=== PATIENT | female | born 1970 | race Caucasian/White ===

== ENCOUNTER 2018-04-20 13:31 | Inpatient (IN) | payer BC, OTHER ==
[~2018-04-20] VITALS: Ht 165.1 cm; Wt 61.2 kg
[2018-04-20] MEDS ORDERED: CLONIDINE HCL 0.1 MG TABLET PO PRN (15:00)
[2018-04-20] MEDS ORDERED: ONDANSETRON ODT 4 MG TAB.RAPDIS SL PRN (15:00)
[2018-04-20] MEDS ORDERED: LORAZEPAM 1 MG TABLET PO PRN (15:00)
[2018-04-20] MEDS ORDERED: ONDANSETRON 4 MG/2 ML VIAL IM PRN (15:00)
[2018-04-20] MEDS ORDERED: MAGNESIUM HYDROXIDE 30 ML LIQUID UDC PO PRN (15:00)
[2018-04-20] MEDS ORDERED: ACETAMINOPHEN 325 MG TABLET PO PRN (15:00)
[2018-04-20] MEDS ORDERED: diphenhydrAMINE 50 MG CAPSULE PO PRN (15:00)
[2018-04-20] MEDS ORDERED: LOPERAMIDE HCL 2 MG CAPSULE PO PRN ×2 (15:00)
[2018-04-20] MEDS ORDERED: THIAMINE HCL 200 MG/2 ML VIAL IM ONE (15:00)
[2018-04-20] MEDS ORDERED: LORAZEPAM 2 MG/1 ML VIAL IM PRN (15:00)
[2018-04-20] MEDS ORDERED: MIRALAX 17 GM POWD.PACK PO PRN (15:00)
[2018-04-20] MEDS ORDERED: MAG HYDROX/AL HYDROX/SIMETH 30 ML LIQUID UDC PO PRN (15:00)
[2018-04-20] MEDS ORDERED: TRAZ-214 PO ×2 (15:15→16:09)
[2018-04-20] MEDS ORDERED: KETO15CR2 TP (15:15)
[2018-04-20] MEDS ORDERED: [UNRECOGNIZED DRUG - CODE] PO ×2 (15:15→16:27)
[2018-04-20] MEDS ORDERED: LEVE750T54 PO (15:15)
[2018-04-20 15:30] LABS: *URINE HCG, QUAL NEGATIVE (NEGATIVE)
[2018-04-20 15:41] LABS: *AMPHETAMINE, URINE NEGATIVE (NEGATIVE); *BARBITURATE, URINE NEGATIVE (NEGATIVE); *CANNABINOID, URINE NEGATIVE (NEGATIVE); *COCCAINE, URINE NEGATIVE (NEGATIVE); *OPIATE, URINE NEGATIVE (NEGATIVE); *PHENCYCLIDINE SCREEN,URINE NEGATIVE (NEGATIVE)
[2018-04-20] MEDS ORDERED: LORAZEPAM 1 MG TABLET PO ONE (16:00)
[2018-04-20] MEDS ORDERED: KETOCONAZOLE 2% CREAM 30 GM TUBE TP PRN (16:00)
[2018-04-20 16:11] LABS: BASOPHILS # (AUTO) 0.1 K/uL (0.0-8.0); BASOPHILS % (AUTO) 1.3 % (0.0-2.0); EOSINOPHILS # (AUTO) 0.1 K/uL (0.0-0.7); EOSINOPHILS % (AUTO) 0.8 % (0.0-7.0); HEMATOCRIT 38.4 % (31.2-41.9); HEMOGLOBIN 13.3 g/dL (10.9-14.3); LYMPHOCYTES # (AUTO) 2.5 K/uL (20.0-40.0); LYMPHOCYTES % (AUTO) 38.8 % (20.5-51.5); MEAN CORPUSCULAR HEMOGLOBIN 31.9 uug (24.7-32.8); MEAN CORPUSCULAR HGB CONC 35 g/dL (32.3-35.6); MEAN CORPUSCULAR VOLUME 91.8 fL (75.5-95.3); MONOCYTES # (AUTO) 0.5 K/uL (2.0-10.0); MONOCYTES % (AUTO) 8.3 % (0.0-11.0); NEUTROPHILS # (AUTO) 3.3 K/uL (1.8-8.9); NEUTROPHILS % (AUTO) 50.8 % (38.5-71.5); PLATELET COUNT (AUTO) 285 K/uL (179-408); RED BLOOD CELL COUNT(AUTO) 4.18 MIL/uL (3.63-4.92); WHITE BLOOD COUNT (AUTO) 6.4 K/uL (3.8-11.8)
[2018-04-20] MEDS ORDERED: LEVE750T10 PO (16:11)
[2018-04-20] MEDS: FOLIC ACID 1 MG TABLET PO SCH (16:20)
[2018-04-20] MEDS: THIAMINE HCL 100 MG TABLET PO SCH (16:20)
[2018-04-20] MEDS: MULTIVITAMINS,THERAPEUTIC TABLET PO SCH (16:20)
[2018-04-20 16:23] LABS: ALANINE AMINOTRANSFERASE 43 U/L (14-59); ALKALINE PHOSPHATASE 52 U/L (50-136); AMYLASE 117 U/L (25-115); ASPARTATE AMINOTRANSFERASE 27 U/L (15-37); BILIRUBIN,TOTAL 0.4 mg/dL (0.2-1.0); CARBON DIOXIDE 25 mmol/L (21-32); CHLORIDE 102 mmol/L (98-107); GLUCOSE 192 mg/dL (74-106); LIPASE 251 U/L (73-393); MAGNESIUM 1.8 mg/dL (1.8-2.4); POTASSIUM 4.2 mmol/L (3.5-5.1); TOTAL PROTEIN, SERUM 7.3 g/dL (6.4-8.2); UREA NITROGEN, BLOOD 17 mg/dL (7-18)
[2018-04-20 16:30] VITALS: BP 142/59
[2018-04-20 16:34] LABS: ETHANOL < 3 MG/DL (0-0)
[2018-04-20 16:53] LABS: THYROID STIMULATING HORMONE 0.977 mIU/mL (0.358-3.740)
[2018-04-20 20:11] VITALS: BP 100/53
[2018-04-20] MEDS: LEVETIRACETAM 250 MG TABLET PO SCH (20:21)
[2018-04-20] MEDS: LORAZEPAM 1 MG TABLET PO PRN (20:51)
[2018-04-20] MEDS ORDERED: TRAZODONE 100 MG TABLET PO SCH (21:00)
[2018-04-20] MEDS: TRAZODONE 100 MG TABLET PO SCH (21:58)
[2018-04-21 08:00] VITALS: BP 118/74
[2018-04-21 08:06] LABS: HEPATITIS B SURFACE AG Negative (Negative)
[2018-04-21] MEDS: LORAZEPAM 1 MG TABLET PO SCH ×3 (08:16→22:14)
[2018-04-21] MEDS: FOLIC ACID 1 MG TABLET PO SCH (08:16)
[2018-04-21] MEDS: THIAMINE HCL 100 MG TABLET PO SCH (08:16)
[2018-04-21] MEDS: LEVETIRACETAM 250 MG TABLET PO SCH ×2 (08:16→22:14)
[2018-04-21] MEDS: MULTIVITAMINS,THERAPEUTIC TABLET PO SCH (08:16)
[2018-04-21] MEDS ORDERED: 3 DAY TAPER OF LORAZEPAM -SERENITY PROTOCOL PO PRN (09:00)
[2018-04-21] MEDS ORDERED: TUBERCULIN,PURIF.PROT.DERIV. 5 TU/0.1 ML TEST ID ONE (09:00)
[2018-04-21] MEDS ORDERED: PATIENT MAY USE OWN MED- MD OK PO SCH ×2 (09:00)
[2018-04-21 12:00] VITALS: BP 140/87
[2018-04-21] MEDS: LORAZEPAM 1 MG TABLET PO PRN (13:03)
[2018-04-21 16:00] VITALS: BP 120/78
[2018-04-21 20:00] VITALS: BP 109/72
[2018-04-21] MEDS: TRAZODONE 100 MG TABLET PO SCH (22:14)
[2018-04-22 08:04] LABS: BILIRUBIN,TOTAL 0.5 mg/dL (0.2-1.0); CREATININE 0.9 mg/dL (0.6-1.3); POTASSIUM 4.6 mmol/L (3.5-5.1); TOTAL PROTEIN, SERUM 6.8 g/dL (6.4-8.2)
[2018-04-22 08:55] VITALS: BP 131/83
[2018-04-22] MEDS: MULTIVITAMINS,THERAPEUTIC TABLET PO SCH (09:16)
[2018-04-22] MEDS: THIAMINE HCL 100 MG TABLET PO SCH (09:16)
[2018-04-22] MEDS: LEVETIRACETAM 250 MG TABLET PO SCH ×2 (09:16→20:32)
[2018-04-22] MEDS: FOLIC ACID 1 MG TABLET PO SCH (09:16)
[2018-04-22] MEDS: LORAZEPAM 1 MG TABLET PO SCH ×2 (09:16→20:31)
[2018-04-22] MEDS: IBUPROFEN 600 MG TABLET PO PRN ×2 (12:18→18:24)
[2018-04-22 12:38] VITALS: BP 127/70
[2018-04-22 16:55] VITALS: BP 116/78
[2018-04-22 20:00] VITALS: BP 135/81
[2018-04-22] MEDS: TRAZODONE 100 MG TABLET PO SCH (20:31)
[2018-04-23 08:00] VITALS: BP 111/83
[2018-04-23] MEDS ORDERED: LORAZEPAM 1 MG TABLET PO SCH (09:00)
[2018-04-23] MEDS: LEVETIRACETAM 250 MG TABLET PO SCH ×2 (09:25→21:13)
[2018-04-23] MEDS: FOLIC ACID 1 MG TABLET PO SCH (09:25)
[2018-04-23] MEDS: MULTIVITAMINS,THERAPEUTIC TABLET PO SCH (09:25)
[2018-04-23] MEDS: THIAMINE HCL 100 MG TABLET PO SCH (09:25)
[2018-04-23 12:00] VITALS: BP 125/74
[2018-04-23] MEDS ORDERED: LEVE750T10 PO (13:12)
[2018-04-23] MEDS ORDERED: HYDR-3895 PO (13:12)
[2018-04-23] MEDS ORDERED: CLON0.1T14 PO (13:12)
[2018-04-23 16:00] VITALS: BP 118/71
[2018-04-23] MEDS: OXYMETAZOLINE NASAL 0.05% 15 ML SPRAY NS PRN ×2 (16:59→21:34)
[2018-04-23] MEDS: HYDROXYZINE PAMOATE 25 MG CAPSULE PO PRN ×2 (17:00→21:13)
[2018-04-23 20:00] VITALS: BP 95/62
[2018-04-23] MEDS: TRAZODONE 100 MG TABLET PO SCH (21:13)
[2018-04-23] MEDS: IBUPROFEN 600 MG TABLET PO PRN (21:18)
[2018-04-24 08:00] VITALS: BP 136/81
[2018-04-24] MEDS: FOLIC ACID 1 MG TABLET PO SCH (08:27)
[2018-04-24] MEDS: THIAMINE HCL 100 MG TABLET PO SCH (08:27)
[2018-04-24] MEDS: MULTIVITAMINS,THERAPEUTIC TABLET PO SCH (08:27)
[2018-04-24] MEDS: LEVETIRACETAM 250 MG TABLET PO SCH (08:27)
[2018-04-24] MEDS ORDERED: PIRMELLA PO SCH (09:00)
== END 2018-04-24 09:29 | disposition home or self-care (01) | DRG 895 ==
LOC: SRC 14:12
PROVIDERS: ADMIT Family Medicine Addiction Medicine; ATTEND Family Medicine Addiction Medicine
PROC: HZ2ZZZZ Detoxification Services for Substance Abuse Treatment (ICD-10-PCS; principal; 2018-04-20)
PROC: HZ41ZZZ Group Counseling for Substance Abuse Treatment, Behavioral (ICD-10-PCS; 2018-04-21)
PROC: HZ31ZZZ Individual Counseling for Substance Abuse Treatment, Behavioral (ICD-10-PCS; 2018-04-22)
DX: F10.230 Alcohol dependence with withdrawal, uncomplicated (principal); G40.509 Epileptic seizures related to external causes, not intractable, without status epilepticus; Y90.0 Blood alcohol level of less than 20 mg/100 ml; Z81.1 Family history of alcohol abuse and dependence; G47.00 Insomnia, unspecified; Z79.899 Other long term (current) drug therapy; F41.9 Anxiety disorder, unspecified; R73.9 Hyperglycemia, unspecified
CPT/HCPCS: 36415; 70030-TC; 80307; 83690; 83735; 84443; 84703; 85025; 86592; 86705; 86803; 87340; 87806; A4663; G0480; J3411